=== PATIENT | male | born 1990 | race African-American/Black ===

== ENCOUNTER 2017-04-14 16:27 | Emergency (ER) | payer MEDICAID ==
[~2017-04-14] VITALS: Ht 177.8 cm; Wt 81.6 kg
[2017-04-14 16:43] VITALS: BP 124/84
== END 2017-04-14 19:54 | disposition left against medical advice (07) ==
LOC: EDBD 16:27 → ER 16:27
DX: R55 Syncope and collapse (principal); Z53.21 Procedure and treatment not carried out due to patient leaving prior to being seen by health care provider
CPT/HCPCS: 93005